=== PATIENT | male | born 1970 | race Caucasian/White ===

== ENCOUNTER 2019-03-06 22:48 | Emergency (ER) | payer MEDICAID ==
[~2019-03-06] VITALS: Ht 180.3 cm; Wt 86.0 kg
[2019-03-07] MEDS ORDERED: OLANZAPINE 10MG TABLET PO SCH (01:15)
[2019-03-07 03:15] VITALS: BP 128/74
== END 2019-03-07 05:40 | disposition home or self-care (01) ==
LOC: ER 22:48
DX: F20.9 Schizophrenia, unspecified (principal)
CPT/HCPCS: 99284

== ENCOUNTER 2019-03-31 23:13 | Emergency (ER) | payer MEDICAID | END 2019-03-31 23:35 | disposition left against medical advice (07) | LOC: ER 23:13 | DX: F98.9 Unspecified behavioral and emotional disorders with onset usually occurring in childhood and adolescence (principal); Z53.21 Procedure and treatment not carried out due to patient leaving prior to being seen by health care provider ==

== ENCOUNTER 2022-03-07 06:17 | Emergency (ER) | payer MEDICAID ==
[~2022-03-07] VITALS: Ht 172.7 cm; Wt 87.0 kg
[2022-03-07 06:20] VITALS: BP 117/80
== END 2022-03-07 08:13 | disposition left against medical advice (07) ==
LOC: ER 06:17
DX: Z53.21 Procedure and treatment not carried out due to patient leaving prior to being seen by health care provider (principal)

== ENCOUNTER 2022-03-07 08:46 | Emergency (ER) | payer MEDICAID ==
[~2022-03-07] VITALS: Ht 172.7 cm; Wt 95.0 kg
[2022-03-07 09:05] VITALS: BP 138/96
== END 2022-03-07 11:02 | disposition left against medical advice (07) ==
LOC: ER 09:25
DX: Z53.21 Procedure and treatment not carried out due to patient leaving prior to being seen by health care provider (principal)
CPT/HCPCS: 99281

== ENCOUNTER 2023-01-16 12:24 | Emergency (ER) | payer MEDICAID ==
[~2023-01-16] VITALS: Ht 172.7 cm; Wt 90.0 kg
[2023-01-16] VITALS (7 sets, daily range): BP systolic 133; BP diastolic 98; PULSE 108–156; RESP 18–33; TEMP 103.6; O2SAT 97
[2023-01-16] MEDS ORDERED: SODIUM CHLORIDE 0.9% 1,000 ML IV ONE ×3 (12:45→13:45)
[2023-01-16] MEDS ORDERED: LORAZEPAM 2MG/ML CPJ IV ONE (12:45)
[2023-01-16] MEDS ORDERED: ETOMIDATE 2MG/ML 10ML VIAL IV ONE (13:00)
[2023-01-16] MEDS ORDERED: VECURONIUM BROMIDE 10 MG/VIAL IV ONE (13:00)
[2023-01-16] MEDS ORDERED: MIDAZOLAM HCL 2 MG/2 ML VIAL IV ONE (13:00)
[2023-01-16] MEDS ORDERED: MIDAZOLAM HCL 100 MG in DEXT 5% WATER 80 ML IV ONE (13:00)
[2023-01-16 13:05] LABS: BASOPHILS % 0.2 % (0.0-2.0); DIFFERENTIAL COMMENT 0; EOSINOPHILS % 0.1 % (0.0-5.0); HEMATOCRIT. 48.2 % (42.0-52.0); HEMOGLOBIN. 15.5 g/dL (14.0-18.0); LYMPHOCYTES % 23.5 % (20.0-50.0); MEAN CORPUSCULAR HEMOGLOBIN 30.7 pg (28.0-32.0); MEAN CORPUSCULAR HGB CONC 32.1 g/dL (31.0-37.0); MEAN CORPUSCULAR VOLUME 95.7 fL (80.0-94.0); MEAN PLATELET VOLUME 8.9 fl (7.4-10.4); MONOCYTES % 2.7 % (2.0-8.0); NEUTROPHILS % 73.5 % (40.0-76.0); PLATELET 240 x1000/uL (130-400); RED BLOOD CELL COUNT 5.04 mill/uL (4.7-6.1); RED CELL DISTRIBUTION WIDTH 15.5 % (11.6-14.6); WHITE BLOOD COUNT 12.7 x1000/uL (4.5-11.0)
[2023-01-16] MEDS ORDERED: MIDAZOLAM HCL 100 MG in SODIUM CHLORIDE 0.9% 100 ML IV PRN (13:15)
[2023-01-16 13:16] LABS: CHLORIDE 105 mEq/L (98-107); INDEX HEMOLYSI 1 (1-3); INDEX ICTERIC 1 (1-4); INDEX LIPEMIC 1 (1-3); INR 1.1; POTASSIUM 4.8 mEq/L (3.5-5.1); SODIUM 142 mEq/L (136-145)
[2023-01-16 13:26] LABS: ALANINE AMINOTRANSFERASE 73 IU/L (13-61); ALBUMIN 4.1 g/dL (3.4-5.0); ASPARTATE AMINOTRANSFERASE 61 IU/L (15-37); BILIRUBIN TOTAL 0.3 mg/dL (0.1-1.0); CALCIUM 8.9 mg/dL (8.5-10.1); CARBON DIOXIDE 17 mEq/L (21-32); CREATININE 1.8 mg/dL (0.6-1.3); ETHANOL BLOOD 24 mg/dL (-10); GLUCOSE 142 mg/dL (70-105); PROTEIN TOTAL 8.4 g/dL (6.0-8.3); TROPONIN I HIGH SENSITIVITY 46 ng/L (<78); UREA NITROGEN BLOOD 14 mg/dL (7-21)
[2023-01-16 14:04] LABS: CLARITY URINE CLEAR (CLEAR); COLOR URINE YELLOW (YELLOW); GLUCOSE URINE NEGATIVE (NEGATIVE); KETONES URINE NEGATIVE (NEGATIVE); LEUKOCYTE ESTERASE URINE NEGATIVE (NEGATIVE); NITRITE URINE NEGATIVE (NEGATIVE); OCCULT BLOOD URINE NEGATIVE (NEGATIVE); PH URINE 7.5 (4.5-8.0); PROTEIN URINE 1+ (NEGATIVE); SPECIFIC GRAVITY URINE 1.015 (1.005-1.030); UROBILINOGEN URINE 0.2 E.U./dL (0.2-1.0)
[2023-01-16 14:06] LABS: BACTERIA URINE NONE SEEN; SQUAMOUS EPITHELIAL CELL URINE NONE SEEN /lpf (RARE/1+); WBC URINE 0-2 /hpf (0-2); YEAST URINE NONE SEEN
[2023-01-16] MEDS ORDERED: ACETAMINOPHEN 650MG/20.3ML UDC PO ONE (14:15)
[2023-01-16] MEDS ORDERED: PIPERACILLIN/TAZ 3.375G PREMIX 50 ML IV ONE (14:15)
[2023-01-16] MEDS ORDERED: VANCOMYCIN 1G PREMIX 200 ML IV ONE (14:15)
[2023-01-16 14:18] LABS: BG BASE EXCESS -8.6 mmol/L (-2.0-2.0); BG CARBOXYHEMOGLOBIN 0.3 % (0.5-1.5); BG DEOXYHEMOGLOBIN 0.9 % (0.0-5.0); BG FRACTION INSPIRED OXYGEN 100; BG METHEMOGLOBIN 0.5 % (0.0-1.5); BG OXYGEN SATURATION 99.1 % (92.0-98.5); BG OXYHEMOGLOBIN 98.3 % (94.0-97.0); BG PH 7.225 (7.350-7.450); BG PO2 352.8 mmHg (75.0-100.0); BG SAMPLE SITE RIGHT RADIAL; BG TOTAL HEMOGLOBIN 14.2 g/dL (12.0-18.0); BG VENT MODE VENT - AC
[2023-01-16 14:22] LABS: HYALINE CASTS URINE 0-5 /lpf
[2023-01-16 14:23] LABS: MUCUS URINE TRACE /lpf (NONE/TRACE)
[2023-01-16 14:35] LABS: *AMPHETAMINES SCREEN URINE PRESUMTIVE POSITIVE (NEGATIVE); *BARBITURATES SCREEN URINE NEGATIVE (NEGATIVE); *BENZODIAZEPINES SCREEN URINE NEGATIVE (NEGATIVE); *COCAINE SCREEN URINE NEGATIVE (NEGATIVE); CANNABINOID URINE SCREEN NEGATIVE (NEGATIVE); ECSTASY MDMA SCREEN URINE CONF.TEST INDICATED (NEGATIVE); METHADONE URINE SCREEN NEGATIVE (NEGATIVE); OPIATES URINE SCREEN NEGATIVE (NEGATIVE); PHENCYCLIDINE URINE SCREEN NEGATIVE (NEGATIVE)
[2023-01-16 15:50] LABS: LACTIC ACID 4.4 mmol/L (0.4-2.0)
[2023-01-16] MEDS ORDERED: NOREPINEPHRINE 8MG/250ML PMX 250 ML IV ONE (16:15)
[2023-01-16] MEDS ORDERED: ONDANSETRON HCL 4MG/2ML INJ IV PRN (16:30)
[2023-01-16] MEDS ORDERED: ACETAMINOPHEN 325MG TABLET PO PRN (16:30)
[2023-01-16] MEDS ORDERED: SODIUM CHLORIDE 0.9% 1,000 ML IV SCH (16:30)
[2023-01-16] MEDS ORDERED: IPRATROPIUM BROMIDE (0.02%) 0.5MG/2.5ML NEB HHN SCH (16:45)
[2023-01-16] MEDS ORDERED: PHENYLEPHRINE 50 MG in DEXT 5% WATER 245 ML IV PRN ×2 (17:16→17:30)
[2023-01-16] MEDS ORDERED: MIDODRINE HCL 5MG TABLET PO SCH (18:15)
[2023-01-16] MEDS ORDERED: VASOPRESSIN 20 UNIT in SODIUM CHLORIDE 0.9% 99 ML IV PRN ×4 (18:15)
[2023-01-16 18:40] LABS: INDEX HEMOLYSI 3 (1-3)
[2023-01-16] MEDS ORDERED: OCTREOTIDE ACETATE 50 MCG/ML 1ML IV STA (19:18)
[2023-01-16 19:36] LABS: CREATINE KINASE 39053 IU/L (39-308)
[2023-01-16 19:46] LABS: HEMATOCRIT 51.3 % (42.0-52.0); HEMOGLOBIN 16.9 g/dL (14.0-18.0)
[2023-01-16] MEDS ORDERED: PANTOPRAZOLE SODIUM 40 MG/VIAL IV SCH (20:45)
[2023-01-16 21:24] LABS: CHLORIDE 116 mEq/L (98-107); INDEX HEMOLYSI 4 (1-3); INDEX ICTERIC 1 (1-4); INDEX LIPEMIC 1 (1-3); SODIUM 143 mEq/L (136-145)
[2023-01-16 21:32] LABS: ALBUMIN 1.8 g/dL (3.4-5.0); CALCIUM 7.3 mg/dL (8.5-10.1); GLUCOSE 89 mg/dL (70-105); PROTEIN TOTAL 5.8 g/dL (6.0-8.3); UREA NITROGEN BLOOD 20 mg/dL (7-21)
[2023-01-16 21:52] LABS: CARBON DIOXIDE 6 mEq/L (21-32); POTASSIUM 6.6 mEq/L (3.5-5.1)
[2023-01-16 21:56] LABS: ALANINE AMINOTRANSFERASE 233 IU/L (13-61); ASPARTATE AMINOTRANSFERASE 1017 IU/L (15-37)
[2023-01-16] MEDS ORDERED: PIPERACILLIN/TAZOBACTAM 3.375 G in DEXTROSE 5% WATER 50 ML IV SCH (22:00)
[2023-01-17] MEDS ORDERED: PANTOPRAZOLE SODIUM 40 MG/VIAL IV SCH (09:00)
== END 2023-01-17 00:13 ==
LOC: ER 12:24 → EDBEDREQ 13:45 → EDBEDREQTM 13:45 → ER 01-17 00:13 → CANBEDREQ 01-17 20:51
DX: J96.90 Respiratory failure, unspecified, unspecified whether with hypoxia or hypercapnia (principal); E11.9 Type 2 diabetes mellitus without complications; F20.9 Schizophrenia, unspecified; Z20.822 Contact with and (suspected) exposure to COVID-19
CPT/HCPCS: 80053; 80305; 81003; 80320; 82550; 82962; 83605; 85014; 85018; 85025; 85610; 86850; 86900; 86901; 86920; 87040; 87086; 84484; 36415; 84145; 71045; 70450; 82805; 82375; 92950; 93005; 31500; 96368; 96365; 96366; 96375; 99291; 87426; 36600; J2354; J3490; J2543; J3370; J7060; J7030; C9803; Z7610 ×8; 94002; J2250; P9016; A4315; G0480